=== PATIENT | male | born 1945 | race African-American/Black ===

== ENCOUNTER 2021-10-15 21:02 | Observation (INO) | payer OTHER ==
[~2021-10-15] VITALS: Ht 180.3 cm; Wt 127.9 kg
[~2021-10-15 21:02] MED LIST: ALBUTEROL2.5 MG/3 M INH; ALLEGRA ALLERG180 MG PO; AMIODARONE HCL400 MG PO; AMPICILLIN IVP; ASPIR 8181 MG PO; ATORVASTATIN CA80 MG PO; AUGMENTIN 875-1 EACH PO; CLARITIN10 MG PO; CORDARONE 200M200 MG PO; COREG 25MG TAB25 MG PO; COREG25 MG PO; COZAAR25 MG PO; DETROL LA 4 MG C4 MG PO; DIGOX125 MCG PO; ELIQUIS5 MG PO; FUROSEMIDE40 MG PO; IMDUR ER TAB 3030 MG PO; ISOSORBIDE DINI30 MG PO; ISOSORBIDE PO; JANUVIA 100 MG100 MG PO; JANUVIA100 MG PO; LASIX 40 MG TAB40 MG PO; LEVEMIR 10100 UNITS/ SQ; LEVEMIR FL100 UNIT/1 SQ; LINZESS145 MCG PO; LIPITOR40 MG PO; LOSARTAN POTASS25 MG PO; MYSOLINE250 MG PO; NITROSTAT 0.40.4 MG SL; PRIMIDONE50 MG PO; SINGULAIR10 MG PO; SYMBICORT 16010.2 GM INH; TOLTERODINE TART4 MG PO; TRADJENTA5 MG PO; XYZAL5 MG PO
[2021-10-15 22:41] LABS: HEMOGLOBIN 9.3 gm/dl (14.0-17.5); RED BLOOD COUNT 3.57 M/UL (4.20-5.50); WHITE BLOOD COUNT 10.6 K/UL (4.5-11.0)
[2021-10-16 03:56] LABS: HEMOGLOBIN 8.8 gm/dl (14.0-17.5)
[2021-10-16] MEDS ORDERED: LEVEMIR FL100 UNIT/1 SQ (11:29)
[2021-10-16] MEDS ORDERED: FUROSEMIDE40 MG PO (11:32)
== END 2021-10-17 11:38 | disposition home or self-care (01) ==
LOC: ER1 21:02 → CDU 10-16 03:28 → M/S 10-16 03:28
PROVIDERS: Physician Assistant; ADMIT Internal Medicine
DX: C20 Malignant neoplasm of rectum (principal); K62.5 Hemorrhage of anus and rectum; K56.1 Intussusception; I25.10 Atherosclerotic heart disease of native coronary artery without angina pectoris; I48.0 Paroxysmal atrial fibrillation; I11.0 Hypertensive heart disease with heart failure; I50.32 Chronic diastolic (congestive) heart failure; E11.9 Type 2 diabetes mellitus without complications; J44.9 Chronic obstructive pulmonary disease, unspecified; G47.30 Sleep apnea, unspecified; Z20.822 Contact with and (suspected) exposure to COVID-19; Z79.01 Long term (current) use of anticoagulants; Z95.1 Presence of aortocoronary bypass graft; Z95.5 Presence of coronary angioplasty implant and graft; Z87.891 Personal history of nicotine dependence; Z86.79 Personal history of other diseases of the circulatory system
CPT/HCPCS: 36415; 80053; 81001; 82272; 82962; 85014; 85018; 85025; 86850; 86900; 86901; 93005; 96374; 99284; C9113; G0378; J7030; Q9967; U0002